=== PATIENT | male | born 1935 | race Caucasian/White ===

== ENCOUNTER 2016-09-26 14:20 | Inpatient (IN) ==
[2016-09-26 15:00] LABS: Basophils % 0.7 % (0.0-0.8); Eosinophils # 0.2 10*3/uL (0.0-0.87); Hematocrit 41.9 VOL% (42.0-52.0); Hemoglobin 14.2 GM/DL (14.0-18.0); Immature Granulocytes % 0.4 %; Immature Granulocytes Absolute 0.02 #; Lymphocytes # 2.1 10*3/uL (1.4-4.0); Lymphocytes % 36.8 % (21.2-54.2); Mean Corpuscular HGB Conc 33.9 GM/DL (32-36); Mean Corpuscular Hemoglobin 31 PG (27-34); Mean Corpuscular Volume 89.9 FL (87-102); Mean Platelet Volume 9.1 FL (9.6-12.0); Monocytes # 0.6 10*3/uL (0.11-0.8); Monocytes % 10.6 % (1.7-12.7); Neutrophils # 2.8 10*3/uL (1.4-7.4); Neutrophils % 48.5 % (38.7-73.9); Platelet Count 273 T/CUMM (130-400); Red Blood Count 4.66 MC/CUMM (3.8-5.5); Red Cell Distribution Width 13.6 % (9.3-17.3); White Blood Count 5.7 T/CUMM (4-12)
[2016-09-26 15:08] LABS: INR 1.1; Partial Thromboplastin Time 28.4 SECS (0-40)
--- NOTE | 2016-09-26 15:24 | Emergency Department Note ---
Armando Price Gwan, am scribing for, and in the presence of, Miguel Peguero MD 15:24 . Marielena Price James D, MD, personally performed the services described in this documentation, ascribed by Javier Roberts in my presence, and it is both accurate and complete 524 . Arrival - Arrival Chief Complaint: Neuro Stated Complaint: neuro ED Nursing Triage Note: pt brought for stroke s/s. pt unable to voice his complaint- very hard of hearing. no obvious defecit noted. 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 no slurred speech or facial droop noted. unknown time of onset. pt's not at bedside. Mode of Arrival: Wheelchair Limitations: No Limitations Source: Patient, Significant other ( ), Old Records Reviewed, RN Notes Reviewed Time Seen by Provider: 09/26/16 14:44 - History of Present Illness HPI Narrative: Patient is a 81 y/o male, with a hx of CVA and Aneurysm, who presents to the ED for further evaluation of possible stroke. Patient stated that pt has new onset of weakness of left side. said that they were present at [facility] for same reasons and that s/p CT head, pt was dx with "mini stroke". confirmed that pt's last known well time was 09/24/2016 at 2000. The morning of 09/25/2016, pt's sxs began. His associated sxs have also been inability to walk. continued to say that pt received right side weakness s/p CVA in 2001. then stated that pt is seen at home by VULNERABILITY ASSESSMENT ANALYST Sarah Sequeira from the [facility] in [place]. She denies that pt has any chest pain or SOB. Onset (ago): day(s) Consistency: constant Severity: moderate Home Medications: Home Medications Medication Instructions Recorded Confirmed Type Amlodipine Besylate 10 mg PO QAM 09/26/16 09/26/16 History Aspirin EC Tab 81 mg PO QAM 09/26/16 09/26/16 History Brimonidine Tartrate [Brimonidine 1 drop BOTH EYES BID 09/26/16 09/26/16 History 0.2% Oph Soln] Carboxymethylcellulos/Glycerin 1 drop BOTH EYES Q1-2H PRN 09/26/16 09/26/16 History [Refresh Optive] Clopidogrel Bisulfate [Clopidogrel] 75 mg PO QAM 09/26/16 09/26/16 History Dorzolamide 2% Oph Soln [Trusopt 1 drop BOTH EYES BID 09/26/16 09/26/16 History 2% Oph Soln] Latanoprost [Latanoprost 0.005 % 1 drop BOTH EYES BEDTIME 09/26/16 09/26/16 History Oph Soln] Lisinopril [Prinivil] 20 mg PO BID 09/26/16 09/26/16 History Metformin HCl 850 mg PO AC BREAKFAST 09/26/16 09/26/16 History [place]-3S/Dha/Epa/Fish Oil 1 each PO QAM 09/26/16 09/26/16 History [Sea-[place] 1,000 mg Softgel] Tamsulosin HCl 0.4 mg PO PC SUPPER 09/26/16 09/26/16 History glyBURIDE [Glyburide] 5 mg PO BID 09/26/16 09/26/16 History Review of System - Review of System 12 point system: reviewed and no additional remarkable complaints except as stated - Review of System Constitutional: Present: as per HPI, weakness (right side) Eyes: Absent: discharge, pain Head/Ears/Nose/Throat: Absent: earache Respiratory: Absent: cough Cardiovascular: Absent: chest pain, palpitations Gastrointestinal: Absent: abdominal pain, nausea, vomiting, diarrhea Genitourinary male: Absent: dysuria Musculoskeletal: Absent: arm pain, back pain, lower back pain, leg pain Skin: Absent: rash, lesions Medical,Surgical,& Family Hx - Medical History Neurology: History of: Cerebrovascular Accident - Social History Smoking Status: Never smoker Frequency of Alcohol Use: None Type of Drug Use: None Exam Physical Examination: GENERAL: This is a white male in no apparent distress. VITAL SIGNS: HEENT: Head is normocephalic and atraumatic. Pupils are equally round and reactive to light. Extraocular movement are intact. Oropharynx is benign with moist mucous membranes. NECK: Neck is soft and supple without tenderness. There are no masses. There is no lymphadenopathy. LUNGS: Lungs are clear to auscultation bilaterally. Chest rises symmetrically. There is no chest wall tenderness. CV: Heart is regular rate and rhythm without murmurs, rubs, or gallops. ABDOMEN: Abdomen is soft, non-tender to palpation. There are no abnormal masses palpated. There is no organomegaly. Bowel sounds are present and active. SKIN: Skin is warm and dry. No rash. EXTREMITIES: Patient has full range of motion without tenderness. There is no pedal edema. NEUROLOGIC: Awake, alert, and oriented x4. Cranial nerves II through XII are grossly intact. Right arm weakness with 1/5 motor function, left arm weakness 3 /5, left lower extremity weakness 3/5 with pronator drift in both left arm and left leg. Right leg weakness, 1/5. Flexion contractures of the right upper extremity are present.. PSYCHIATRIC: Normal affect. Normal mood. Vital Signs: Vital Signs Temperature 97.6 F 09/26/16 14:20 Pulse Rate 101 H 09/26/16 14:20 Respiratory Rate 18 09/26/16 14:20 Blood Pressure 177/84 09/26/16 14:20 O2 Sat by Pulse Oximetry 97 09/26/16 14:20 Course Course Narrative: Patient is not a candidate for TIA due to length of time with onset of symptoms. Results - Labs CBC & BMP: 09/26/16 14:40 09/26/16 14:40 Lab Results: I have reviewed the patients labs Labs: Laboratory Tests 09/26/16 09/26/16 14:40 14:40 WBC 5.7 RBC 4.66 Hgb 14.2 Hct 41.9 L Plt Count 273 MPV 9.1 L INR 1.1 PT Patient/Control Mix 12.0 Circ Anticoag PTT 28.4 Laboratory Tests 09/26/16 14:40 Troponin I < 0.015 - EKG EKG results: interpreted by ERMD - Impressions EKG: Ectopic atrial tachycardia with incomplete right bundle branch block, rate 101, nonspecific ST-T wave changes. - Diagnostic Findings Procedure: Chest x-ray: image reviewed by me (Old median sternotomy, no infiltrates, no pleural effusions.), CT: image reviewed by me (CT head: Cerebral atrophy, old right frontal stroke, left basal ganglia stroke, left occipital stroke.) Disposition Clinical Impression: Diabetes mellitus, Essential hypertension Case discussed with: patient Condition: Stable Time of Disposition: 15:41
--- NOTE | 2016-09-26 15:30 | CT Report ---
Referring physician: Miguel Peguero Exam: CT brain without contrast Date: 09/26/2016 Comparison: None Reason: Hemiparesis Technique: Axial images of the head were obtained without the use of contrast. Total DLP was 970.10 mGy*cm. Findings: The left lateral ventricle is larger in size than the right with no midline displacement. Extensive atrophy and cerebral hypodensities. Evidence of chronic infarcts especially in the left basal ganglia location and the left occipital lobe. Arterial calcifications are noted. No evidence of hemorrhage, mass, or extracerebral collection. No acute findings in the visualized paranasal sinuses, orbits, or temporal bones. The osseous structures appear intact. The mastoid air cells and visualized paranasal sinuses are clear. Impression: Extensive atrophy and microvascular disease which could obscure age indeterminate ischemic infarction. Chronic infarcts are felt to be present especially in the left basal ganglia and occipital lobe. Associated compensatory dilatation of the left lateral ventricle. The CT exam was performed using one or more of the following dose reduction techniques: Automated exposure control and adjustment of the mA and/or kV according to patient size. PROCEDURE INTERPRETED AT [facility] DEPARTMENT OF RADIOLOGY Final Report Signed by: Dr. Laly Dixon
[2016-09-26 15:31] LABS: Alanine Aminotransferase 72 U/L (16-61); Albumin 3.3 G/DL (3.4-5.0); Alkaline Phosphatase 98 U/L (45-117); Aspartate Amino Transferase 122 U/L (0-37); Blood Urea Nitrogen 18 MG/DL (7-18); Calcium 8.7 MG/DL (8.5-10.1); Glucose 265 MG/DL (74-106); Osmolality,Calculated 289.4 MOS/KG (273-304); Potassium 4.5 MMOL/L (3.5-5.1); Sodium 140 MMOL/L (136-145); Total Protein 7.4 G/DL (6.4-8.3); Troponin I Only < 0.015 NG/ML (0.00-0.045)
--- NOTE | 2016-09-26 15:32 | XRay Report ---
Portable chest Date: 09/26/2016 Clinical history: Cardiomegaly Comparison: None Technique: Portable AP sitting chest Findings: The heart is normal in size with prior median sternotomy. Chronic scarring with minimal atelectasis at the lung bases. Unremarkable mediastinum with degenerative changes. Impression: Status post median sternotomy with chronic scarring. Minimal atelectasis at the lung bases. PROCEDURE INTERPRETED AT [facility] DEPARTMENT OF RADIOLOGY Final Report Signed by: Dr. Laly Dixon
--- NOTE | 2016-09-26 17:17 | Hospitalist History & Physical ---
<Ce Lima - Last Filed: 09/26/16 17:07> Assessment and Plan - Time spent with patient Time spent with patient: Greater than 30 minutes (1) History of arterial ischemic stroke Status: Acute Assessment and plan: Mr. Polanco is a pleasant 81-year-old white male with history of CVA, hypertension, diabetes admitted by the hospitalist service with new onset of left-sided weakness. Stroke workup will be initiated. Neurology consult, PT OT and speech consult, start sliding scale insulin, resume home medicines. has seen and examine patient and further recommendations to follow. Current Visit: Yes (2) Left-sided weakness Status: Acute Current Visit: Yes (3) Diabetes mellitus Status: Acute Current Visit: Yes (4) Essential hypertension Status: Acute Current Visit: Yes History of Present Illness Chief complaint: Left-sided weakness History of present illness: Mr. Polanco is a 81 year old male with history of diabetes, hypertension, and previous strokes presenting to the ED with 1 day history of new onset of left- sided weakness. Patient's states he had 2 strokes in 2001 that affected his right side. She states that he normally does everything with his left hand and he is able to transfer on his own from his bed to wheelchair, use the restroom on his own and he has been unable to put weight on the left side without falling. Patient denies headache, blurry vision, dysphasia, chest pain , shortness of breath, abdominal pain, constipation or diarrhea, or lower extremity edema. 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 He received a 1 vessel bypass at that time. Patient's also states he has a plate in his head from a crushing head injury bifrontal and lower. Patient is afebrile and vital signs are stable. Her labs are relatively unremarkable except an elevated blood sugar 265. Chest x-ray is okay. CT the head just shows chronic infarcts especially in the left basal ganglia and occipital lobe. Extensive atrophy and microvascular disease. Patient's case was discussed with Dr. Peguero the ED physician and the admitting hospitalist, it was agreed patient would be admitted for evaluation and treatment. Home Medications Medication Instructions Recorded Confirmed Type Amlodipine Besylate 10 mg PO QAM 09/26/16 09/26/16 History Aspirin EC Tab 81 mg PO QAM 09/26/16 09/26/16 History Brimonidine Tartrate [Brimonidine 1 drop BOTH EYES BID 09/26/16 09/26/16 History 0.2% Oph Soln] Carboxymethylcellulos/Glycerin 1 drop BOTH EYES Q1-2H PRN 09/26/16 09/26/16 History [Refresh Optive] Clopidogrel Bisulfate [Clopidogrel] 75 mg PO QAM 09/26/16 09/26/16 History Dorzolamide 2% Oph Soln [Trusopt 1 drop BOTH EYES BID 09/26/16 09/26/16 History 2% Oph Soln] Latanoprost [Latanoprost 0.005 % 1 drop BOTH EYES BEDTIME 09/26/16 09/26/16 History Oph Soln] Lisinopril [Prinivil] 20 mg PO BID 09/26/16 09/26/16 History Metformin HCl 850 mg PO AC BREAKFAST 09/26/16 09/26/16 History [place]-3S/Dha/Epa/Fish Oil 1 each PO QAM 09/26/16 09/26/16 History [Sea-[place] 1,000 mg Softgel] Tamsulosin HCl 0.4 mg PO PC SUPPER 09/26/16 09/26/16 History glyBURIDE [Glyburide] 5 mg PO BID 09/26/16 09/26/16 History Allergies Allergy/AdvReac Type Severity Reaction Status Date / Time No Known Allergies Allergy Verified 09/26/16 16:17 Medical,Surgical,& Family Hx - Medical History Cardio: History of: Hypertension Neurology: History of: Cerebrovascular Accident Endocrine: History of: Diabetes Mellitus (NIDDM) - Surgical History Cardiac Surgeries: Sugical HX of: Cardiac Surgery (Tumor removed from the heart and one-vessel bypass) Neurologic Surgeries: Surgical HX of: Neurologic Surgery (Plate and is from crushing injury) - Family History Family History: Reports;: Family Heart Disease - Social History Smoking Status: Former smoker Frequency of Alcohol Use: None Type of Drug Use: None Marital Status: Lives With:: Spouse Functional capacity: wheelchair bound Review of systems: A complete 10 system review of systems was obtained and pertinent positives and negatives per HPI Exam - Constitutional Vitals: Period Temp Pulse Resp BP Sys/Chase Pulse Ox Last 24 Hr 99 18 110/71 100 Exam: Constitutional System: No distress. No tremulousness. Head: Normocephalic, atraumatic. Ears, Nose and Throat System: No evidence of Otitis or Mastoiditis. No epistaxis or discharge Eyes System: Pupils equal, round, and reactive. Extraocular muscles intact. Conjunctivae are red Neck: Supple, without adenopathy, No jugular venous distention. No thyromegaly, neck mass, or prior surgery apparent. Respiratory System: Chest clear to auscultation. Cardiovascular System: Heart with regular rate and rhythm. No murmur. GI System: Abdomen soft, nontender. Normo active bowel sounds present. Musculoskeletal System: limbs with no pedal edema. Full distal pulses. Grossly 3/5 strength left arm and leg, contractures on right Neurological System: No discernable sensory deficit. No aphasia Psychiatric System: Conversation is rational Results - Labs CBC & BMP: 09/26/16 14:40 09/26/16 14:40 Lab Results: I have reviewed the past 24 hour labs - Impressions Ectopic atrial tachycardia with incomplete right bundle branch block with nonspecific ST and T-wave abnormality - Diagnostic Findings Procedure: Chest x-ray: report reviewed by me (Status post median sternotomy with chronic scarring and minimal atelectasis), CT: report reviewed by me ( Extensive atrophy and microvascular disease which could obscure age- indeterminate ischemic infarction. Chronic infarcts filter present especially in the left basal ganglia and occipital lobe. Associated compensatory dilation of the left lateral ventricle) Quality Measures - Stroke Symptom Onset Unknown: Yes <Heather Mabry - Last Filed: 09/26/16 17:36> History of Present Illness History of present illness: Mr. Polanco is a 81 year old male with multiple risk factors for CVA presents with a left sided weakness.CT head showed no acute changes. Plan Monitor bed Cardiac enzymes MR head' carotids uss b/l, echo, lipids, TSH, AIC levels SSC, PT/OT consult ASA, Plavix Neuro consult. UA Exam - Constitutional Vitals: Period Temp Pulse Resp BP Sys/Chase Pulse Ox Last 24 Hr 97.3 F 97-99 18-18 110-144/71-71 99-100 Results - Labs CBC & BMP: 09/26/16 14:40 05/18/17 14:40
[2016-09-26] MEDS ORDERED: DEXTROSE 50% 25 GM/50 ML VIAL IV PRN (17:56)
[2016-09-26] MEDS ORDERED: LABETALOL 20 MG/4 ML SYRINGE IV PRN (17:56)
[2016-09-26] MEDS ORDERED: GLUCAGON 1 MG VIAL IM PRN (17:56)
[2016-09-26] MEDS ORDERED: CARBOXYMETHYLCELLULOSE 1% OPH SOLN BOTH EYES PRN (17:56)
[2016-09-26] MEDS: INSULIN REGULAR 100 UNIT/ML SUBCUT SCH (18:29)
[2016-09-26] MEDS: ENOXAPARIN 40 MG/0.4 ML SYRINGE SUBCUT SCH (18:29)
[2016-09-26] MEDS: TAMSULOSIN 0.4 MG CAPSULE PO SCH (18:29)
[2016-09-26 18:53] LABS: Troponin I Only < 0.015 NG/ML (0.00-0.045)
[2016-09-26 20:49] LABS: Apearance,Urine Slightly Hazy (Clear); Bilirubin,Urine Negative (Negative); Blood, Urine Negative (Negative); Calcium Oxalate Crystals,Urine Occasional /HPF (Few); Glucose,Urine (UA) >=500 mg/dL (Negative); Hyaline Casts,Urine 4 /LPF (0-3); Ketones,Urine Negative (Negative); Mucus,Urine Occasional /LPF (Occasional); Nitrite,Urine Negative (Negative); Protein,Urine Negative; RBC,Urine 1 /HPF (0-4); Squamous Epithelial Cell,Urine Occasional /HPF (0-10); Urine Color Yellow (Yellow); Urine Specific Gravity 1.012 (1.001-1.035); Urine Urobilinogen < 2.0 EU/DL (0.2-1.0); WBC,Urine 2 /HPF (0-6)
--- NOTE | 2016-09-26 21:33 | Ultrasound Report ---
US carotid duplex BI Indication: Left side weakness. Comparison: None. Technique: Using transcutaneous probe, routine carotid arterial duplex ultrasound performed. Ultrasound images were captured and stored. Estimation of stenosis will be made using indirect NASCET criteria. Ultrasound images were captured and stored. Findings: Grayscale and color Doppler findings: Echogenic plaque is noted within the right carotid artery bulb and proximal cervical segment ICA. Additional echogenic plaque is present within the left carotid artery bulb extending into the left ECA origin and into the cervical segment ICA. Peak systolic velocities are as follows (centimeters per second): Right CCA: 52. Right proximal ICA: 53. Right distal ICA: 42. Right ICA/CCA ratio: 1.0. Left CCA: 56. Left proximal ICA: 39. Left distal ICA: 68. Left ICA/CCA ratio: 1.2. External carotid arteries: External carotid arteries are bilaterally patent. Vertebral arteries: Vertebral arteries bilaterally demonstrate antegrade flow. Impression: 1.No hemodynamically significant stenosis is estimated to involve either carotid arterial system. 09/26/2016 9:29 PM PROCEDURE INTERPRETED AT [facility] DEPARTMENT OF RADIOLOGY Final Report Signed by: Dr. Mateo Iraheta
[2016-09-26] MEDS: LATANOPROST 0.005% OPH SOLN 2.5 ML BOTTLE BOTH EYES SCH (21:46)
[2016-09-26] MEDS: BRIMONIDINE 0.2% OPH SOLN 5 ML BOTTLE BOTH EYES SCH (21:46)
[2016-09-26] MEDS: DORZOLAMIDE 2% OPH SOLN 10 ML BOTTLE BOTH EYES SCH (21:46)
[2016-09-26 22:56] LABS: Barbiturates Screen,Urine Negative (Negative); Benzodiazepines Screen,Urine Negative (Negative); Cannabinoid Screen,Urine Negative (Negative); Opiate Screen,Urine Negative (Negative); Phencyclidine Screen,Urine Negative (Negative)
[2016-09-27] MEDS: INSULIN REGULAR 100 UNIT/ML SUBCUT SCH ×4 (00:24→18:17)
[2016-09-27 07:41] LABS: Basophils # 0.1 10*3/uL (0.0-0.2); Eosinophils # 0.3 10*3/uL (0.0-0.87); Hematocrit 40.4 VOL% (42.0-52.0); Hemoglobin 13.8 GM/DL (14.0-18.0); Immature Granulocytes % 0.2 %; Immature Granulocytes Absolute 0.01 #; Lymphocytes # 2.1 10*3/uL (1.4-4.0); Lymphocytes % 35.9 % (21.2-54.2); Mean Corpuscular HGB Conc 34.2 GM/DL (32-36); Mean Corpuscular Hemoglobin 31 PG (27-34); Mean Corpuscular Volume 90.2 FL (87-102); Monocytes # 0.7 10*3/uL (0.11-0.8); Monocytes % 11.6 % (1.7-12.7); Neutrophils # 2.7 10*3/uL (1.4-7.4); Neutrophils % 46.3 % (38.7-73.9); Platelet Count 285 T/CUMM (130-400); Red Blood Count 4.48 MC/CUMM (3.8-5.5); Red Cell Distribution Width 13.4 % (9.3-17.3); White Blood Count 5.8 T/CUMM (4-12)
--- NOTE | 2016-09-27 07:56 | EKG Report ---
Stationary ECG Study [facility] ER Test Date: 09/26/2016 2:24:15 PM Pat Name: FRITZ RAMSEY Department: Room: 541 Gender: M Leadership Program Internship: : 1935 Requested by: Miguel Gray Order Number: [id number] Reading MD: SOO GUZMAN Intervals [place] Rate: 101 P: 259 OR: 192 QRS: 63 QRSD: 113 T: 22 QT: 392 QTc: 450 Interpretive Statements ATRIAL FLUTTER INCOMPLETE RIGHT BUNDLE BRANCH BLOCK Electronically Signed On 09-27-16 17:15:00 CDT by SOO GUZMAN [email or web address]
[2016-09-27 08:06] LABS: Albumin 3.1 G/DL (3.4-5.0); Bilirubin,Total 0.7 MG/DL (0.2-1.0); Calcium 8.2 MG/DL (8.5-10.1); Osmolality,Calculated 289.7 MOS/KG (273-304); Potassium 3.9 MMOL/L (3.5-5.1); Risk Ratio 4.63; Total Protein 6.7 G/DL (6.4-8.3)
[2016-09-27] MEDS: CLOPIDOGREL 75 MG TABLET PO SCH (08:40)
[2016-09-27] MEDS: OMEGA 3 ACID ETHYL ESTERS 1 GM CAPSULE PO SCH (08:40)
[2016-09-27] MEDS: ASPIRIN EC 81 MG TABLET PO SCH (08:40)
[2016-09-27] MEDS: DORZOLAMIDE 2% OPH SOLN 10 ML BOTTLE BOTH EYES SCH ×2 (08:42→20:26)
[2016-09-27] MEDS: BRIMONIDINE 0.2% OPH SOLN 5 ML BOTTLE BOTH EYES SCH ×2 (08:42→20:26)
--- NOTE | 2016-09-27 10:24 | XRay Report ---
Exam: XR orbits for mri Date: 09/27/2016 9:29 AM Comparison: None Indication: MRI clearance Technique:[3 view orbits Findings: Surgical metallic wire in the floor of the] left orbit. Impression: Surgical metallic wire in the floor the left orbit. PROCEDURE INTERPRETED AT [facility] DEPARTMENT OF RADIOLOGY Final Report Signed by: Dr. Laly Dixon
--- NOTE | 2016-09-27 14:18 | Magnetic Resonance Report ---
History: Left-sided weakness Date: 09/27/2016 Study: MRI brain without IV contrast Comparison exam: CT head 09/26/2016 The brain was imaged in 3 planes on the 1.5 Radha magnet without IV contrast, to include diffusion, T2, FLAIR, gradient-echo, and T1-weighted sequences. The ventricles are midline in position without evidence of hydrocephalus. There is moderate diffuse cerebral atrophy. There is no Chiari I malformation. There is no gross pituitary mass. There is a small focus of subacute ischemia, slightly hyperintense on DWI and isointense on ADC, involving right parietal cortex and subcortical white matter near the convexity, measuring up to 10 x 3 mm. There is no additional area of potential recent ischemia. There is no mass effect or parenchymal hemorrhage. There is a large amount of patchy increased FLAIR and T2 signal in the periventricular white matter and deep white matter without mass effect compatible with changes of small vessel disease. Chronic left occipital and bilateral frontal infarcts are noted bilaterally. Areas of chronic lacunar infarction are noted in the lenticular nuclei and left best radiata. There is no mass effect. There is no extra-axial hematoma. There is normal flow void in the superior sagittal sinus. There is no obvious cerebellopontine angle mass. There is no gross flow abnormality in the [place] area. There is evidence of remote cataract surgery bilaterally. Impression: There is evidence of a small area of subacute ischemia in a right parietal/right MCA distribution region. No acute ischemia or parenchymal hemorrhage. Chronic ischemic changes PROCEDURE INTERPRETED AT [facility] DEPARTMENT OF RADIOLOGY Final Report Signed by: Dr. Yarelis Deshpande
--- NOTE | 2016-09-27 15:00 | Hospitalist Progress Note ---
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 Reportedly has been able to eat a liquid diet here so we will just advance diet as tolerated at this time. Keep an eye on ability of swallow. Usually she can swallow liquids should be able to swallow solids. There is any suggestion of problems speech therapy will see him. Current Visit: Yes (2) History of arterial ischemic stroke Status: Acute Assessment and plan: This is noted on the MRI today to Current Visit: Yes Hospitalist: Subjective Interval history: She has been seen interviewed and examined chart has been reviewed. Rounds were made with the charge nurse. The hospital with a history of old strokes and history of brain injury in the past after an industrial equipment fell on his head. He has a history of scalp repair. Comes in with what looks like acute CVA syndrome. Spikes over the parietal Chema surgeries patient was able to have an MRI done today that shows possibility of a right medial cerebral artery distribution ischemia. Patient will be going through physical therapy and occupational therapy here. He is able to talk to me. He has been here for some time and is on clear liquids and be able to swallow clear liquids. Our office was making a decision to give him a meal he has not had any speech therapy evaluation but he has been able to swallow these liquids. Therefore put him on a heart healthy diet now solid meals Exam - Constitutional Vitals: Period Temp Pulse Resp BP Sys/Chase Pulse Ox Last 24 Hr 96.8 F-98.7 F 95-99 18-20 110-153/67-84 94-100 General appearance: normal weight - Head Head exam: Present: other (Prior head injuries but no acute injuries.) - Eye Eye exam: Present: EOMI Pupils: Present: DENISE - ENT ENT exam: Present: other (Right facial withdrawal, mild) - Neck Neck exam: Present: normal inspection - Respiratory Respiratory exam: Present: clear to auscultation bilaterally - Cardiovascular Cardiovascular exam: Present: other (Regular with occasional ectopy. Unfortunately this patient was supposed to be on the monitor is noted to monitor here. I will instruct the floor to put a monitor on the gentleman.) - GI/Abdominal GI/Abdominal exam: Present: normal bowel sounds, soft - Extremities Exam Extremities exam: Present: other (Old contracture of the right upper extremity especially on the right side. There is him some weakness on the left with a mild right facial droop) - Neurological Exam Neurological exam: Present: alert, oriented X3, other (Mild right facial drop) - Psychiatric Psychiatric exam: Present: normal affect, normal mood - Skin Skin exam: Present: normal color, warm, dry Results - Labs CBC & BMP: 09/27/16 07:14 09/27/16 07:14 Lab Results: I have reviewed the past 24 hour labs Quality Measures - Stroke Symptom Onset Unknown: Yes
--- NOTE | 2016-09-27 16:53 | ECHO Report ---
Jordy Polanco Exam Date: 09/27/2016 14:24 Referring Physician: Technologist: Gena Mobley RDCS Age: 81 Ht (in): 63 Wt (lb): 155 Gender: M Exam Location: [facility] Echo Indications: Essential (primary) hypertension, Left sided weakness, Diabetes, CVA BP: 126 / 67 HR: 95 Rhythm: Atrial fibrillation Technical Quality: Technically difficult study IMPRESSIONS Technically difficult study. EF 50-55 %. The right ventricle is normal in size and function. The right atrium is mildly enlarged. The left atrium is mildly enlarged. The left atrium is mildly enlarged. Mildly thickened mitral valve. Trace mitral valve regurgitation. Aortic valve sclerosis. Trace aortic valve regurgitation. Mild tricuspid valve regurgitation. PAP40 mmHG. Pulmonic valve not well visualized. Normal pericardium without effusion. Normal ascending aorta dimension. No LV or LA clot seen in this limited study. MEASUREMENTS (Male / Female) Normal Values 2D ECHO LV Diastolic Diameter PLAX 3.1 cm 4.2 - 5.9 / 3.9 - 5.3 cm LV Systolic Diameter PLAX 1.8 cm LV Fractional Shortening PLAX 40.8 % IVS Diastolic Thickness 0.9 cm 0.6 - 1.0 / 0.6 - 0.9 cm LVPW Diastolic Thickness 0.9 cm 0.6 - 1.0 / 0.6 - 0.9 cm RV Internal Dim ED PLAX 3.3 cm Aortic Root Diameter 2.4 cm LA Systolic Diameter LX 3.0 cm 3.0 - 4.0 / 2.7 - 3.8 cm DOPPLER TR Peak Velocity 247.0 cm/s TR Peak Gradient 24.4 mmHg FINDINGS Left Ventricle EF 50-55 %. Right Ventricle The right ventricle is normal in size and function. Right Atrium The right atrium is mildly enlarged. Left Atrium The left atrium is mildly enlarged. Mitral Valve Mildly thickened mitral valve. Trace mitral valve regurgitation. Aortic Valve Aortic valve sclerosis. Trace aortic valve regurgitation. Tricuspid Valve Morphologically normal tricuspid valve. Mild tricuspid valve regurgitation. PAP40 mmHG. Pulmonic Valve Pulmonic valve not well visualized. Pericardium Normal pericardium without effusion. Aorta Normal ascending aorta dimension. Jason Sheikh (Electronically Signed) Final Date: 27 Sep 2016 16:51
[2016-09-27] MEDS: TAMSULOSIN 0.4 MG CAPSULE PO SCH (17:54)
[2016-09-27] MEDS: ENOXAPARIN 40 MG/0.4 ML SYRINGE SUBCUT SCH (17:54)
[2016-09-27] MEDS: LATANOPROST 0.005% OPH SOLN 2.5 ML BOTTLE BOTH EYES SCH (20:28)
[2016-09-28] MEDS: INSULIN REGULAR 100 UNIT/ML SUBCUT SCH ×4 (01:08→18:08)
[2016-09-28] MEDS: DORZOLAMIDE 2% OPH SOLN 10 ML BOTTLE BOTH EYES SCH ×2 (08:21→21:06)
[2016-09-28] MEDS: CLOPIDOGREL 75 MG TABLET PO SCH (08:21)
[2016-09-28] MEDS: BRIMONIDINE 0.2% OPH SOLN 5 ML BOTTLE BOTH EYES SCH ×2 (08:21→21:06)
[2016-09-28] MEDS: OMEGA 3 ACID ETHYL ESTERS 1 GM CAPSULE PO SCH (08:21)
[2016-09-28] MEDS: ASPIRIN EC 81 MG TABLET PO SCH (08:21)
--- NOTE | 2016-09-28 16:22 | Hospitalist Progress Note ---
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 Reportedly has been able to eat a liquid diet here so we will just advance diet as tolerated at this time. Keep an eye on ability of swallow. Usually she can swallow liquids should be able to swallow solids. There is any suggestion of problems speech therapy will see him. Current Visit: Yes (2) History of arterial ischemic stroke Status: Acute Assessment and plan: This is noted on the MRI today to Current Visit: Yes Hospitalist: Subjective Interval history: Patient seen interviewed and examined and chart has been reviewed. Patient admitted to the hospital with acute stroke syndrome found to have an acute ischemic infarct involving the right middle cerebral artery. His therapy and neurology evaluation has been consulted on. Unfortunately we are on diversion for neurology until Friday; patient is doing better able to talk to me. Exam - Constitutional Vitals: Period Temp Pulse Resp BP Sys/Chase Pulse Ox Last 24 Hr 97.0 F-99.5 F 92-100 16-18 119-158/66-81 94-98 General appearance: normal weight - Eye Eye exam: Present: EOMI Pupils: Present: DENISE - ENT ENT exam: Present: normal exam - Neck Neck exam: Present: other (Supple neck no JVD no bruit) - Respiratory Respiratory exam: Present: clear to auscultation bilaterally - Cardiovascular Cardiovascular exam: Present: regular rate and rhythm, other (Patient denied) - GI/Abdominal GI/Abdominal exam: Present: normal bowel sounds, soft - Extremities Exam Extremities exam: Present: full ROM - Neurological Exam Neurological exam: Present: alert, oriented X3, CN II-XII intact - Psychiatric Psychiatric exam: Present: normal affect, normal mood - Skin Skin exam: Present: normal color, warm, dry Results - Labs CBC & BMP: 09/27/16 07:14 09/27/16 07:14 Lab Results: I have reviewed the past 24 hour labs Quality Measures - Stroke Symptom Onset Unknown: Yes
[2016-09-28] MEDS: TAMSULOSIN 0.4 MG CAPSULE PO SCH (18:06)
[2016-09-28] MEDS: ENOXAPARIN 40 MG/0.4 ML SYRINGE SUBCUT SCH (18:06)
[2016-09-28] MEDS: LATANOPROST 0.005% OPH SOLN 2.5 ML BOTTLE BOTH EYES SCH (21:07)
[2016-09-29] MEDS: INSULIN REGULAR 100 UNIT/ML SUBCUT SCH ×4 (01:13→18:28)
[2016-09-29] MEDS: DORZOLAMIDE 2% OPH SOLN 10 ML BOTTLE BOTH EYES SCH ×2 (08:29→21:20)
[2016-09-29] MEDS: BRIMONIDINE 0.2% OPH SOLN 5 ML BOTTLE BOTH EYES SCH ×2 (08:29→21:20)
[2016-09-29] MEDS: ASPIRIN EC 81 MG TABLET PO SCH (08:30)
[2016-09-29] MEDS: OMEGA 3 ACID ETHYL ESTERS 1 GM CAPSULE PO SCH (08:30)
[2016-09-29] MEDS: CLOPIDOGREL 75 MG TABLET PO SCH (08:30)
--- NOTE | 2016-09-29 13:16 | Hospitalist Progress Note ---
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 Try to get him into swing bed for more rehab early this coming week; will consult case management for this Current Visit: Yes (2) History of arterial ischemic stroke Status: Acute Assessment and plan: This is noted on the MRI today too. The new neuro deficit on the left side seemed to be recovering. He will need more physical therapy as mentioned above. Current Visit: Yes Hospitalist: Subjective Interval history: Patient has been seen interviewed and examined chart has been reviewed. Continues to recover well the activities with the left upper extremity and left lower extremity. Will need some sort more physical therapy set acute services. Therefore consult case management to start looking into transferring him to a swing bed. Exam - Constitutional Vitals: Period Temp Pulse Resp BP Sys/Chase Pulse Ox Last 24 Hr 97.3 F-98.4 F 87-97 18-20 127-152/65-82 92-99 General appearance: normal weight - Head Head exam: Present: normocephalic - Eye Eye exam: Present: EOMI Pupils: Present: DENISE - ENT ENT exam: Present: normal exam - Neck Neck exam: Present: normal inspection - Respiratory Respiratory exam: Present: clear to auscultation bilaterally - Cardiovascular Cardiovascular exam: Present: regular rate and rhythm - GI/Abdominal GI/Abdominal exam: Present: normal bowel sounds, soft - Extremities Exam Extremities exam: Present: other (Weakness on the left side is relatively new patient has contracture on the right lower except for extremity and very weak right lower extremity. He has history of previous strokes. This time came in with a stroke involving the right middle cerebral artery) - Neurological Exam Neurological exam: Present: alert, oriented X3, CN II-XII intact, other (Rather hard of hearing) - Psychiatric Psychiatric exam: Present: normal affect, normal mood - Skin Skin exam: Present: normal color, warm, dry Results - Labs CBC & BMP: 09/27/16 07:14 09/27/16 07:14 Lab Results: I have reviewed the past 24 hour labs Quality Measures - Stroke Symptom Onset Unknown: Yes
[2016-09-29] MEDS: ENOXAPARIN 40 MG/0.4 ML SYRINGE SUBCUT SCH (18:28)
[2016-09-29] MEDS: TAMSULOSIN 0.4 MG CAPSULE PO SCH (18:28)
[2016-09-29] MEDS: LATANOPROST 0.005% OPH SOLN 2.5 ML BOTTLE BOTH EYES SCH (21:20)
[2016-09-30] MEDS: INSULIN REGULAR 100 UNIT/ML SUBCUT SCH ×3 (01:30→13:24)
[2016-09-30] MEDS: ASPIRIN EC 81 MG TABLET PO SCH (09:57)
[2016-09-30] MEDS: CLOPIDOGREL 75 MG TABLET PO SCH (09:57)
[2016-09-30] MEDS: BRIMONIDINE 0.2% OPH SOLN 5 ML BOTTLE BOTH EYES SCH (09:58)
[2016-09-30] MEDS: OMEGA 3 ACID ETHYL ESTERS 1 GM CAPSULE PO SCH (09:58)
[2016-09-30] MEDS: DORZOLAMIDE 2% OPH SOLN 10 ML BOTTLE BOTH EYES SCH (09:58)
--- NOTE | 2016-09-30 10:13 | Quality Management ---
The patient's LDL is 122. Please order the appropriate medication or provide a contraindication PRIOR to discharge. To complete this task, you will need to order the medication OR provide a contraindication utilizing the Order Management screen. Noted; patient is on atorvastatin 20 mg at bedtime DO NOT ORDER OR PROVIDE CONTRAINDICATIONS WITHIN THIS QUERY. THIS IS A MEANINGFUL USE REQUIREMENT! Thank you, Ce Dimas RN Clinical Digital Specialist W [phone] [facility] CENTERIsaac
--- NOTE | 2016-09-30 10:23 | Discharge Summary ---
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 Status: Acute (2) History of arterial ischemic stroke Status: Acute Discharge Plan - Discharge Data Disposition: Disch/Xfer-Ip Rehab Fac Condition at Discharge: Stable Discharge Diet: diabetic diet, heart healthy Activity: resume usual activities as tolerated Hygiene: other (Patient will need to help with activities of daily living) Weight Bearing at Discharge: weight bear as tolerated Driving: other (No driving) Contact your physician if you experience:: fever over 101, Difficulty voiding, Nausea/Vomiting, Shortness of breath, pain uncontrolled by pain medications - Discharge Medications Continue Tamsulosin HCl 0.4 mg PO PC SUPPER Lisinopril [Prinivil] 20 mg PO BID Clopidogrel Bisulfate [Clopidogrel] 75 mg PO QAM Amlodipine Besylate 10 mg PO QAM [place]-3S/Dha/Epa/Fish Oil [Sea-[place] 1,000 mg Softgel] 1 each PO QAM glyBURIDE [Glyburide] 5 mg PO BID Latanoprost [Latanoprost 0.005 % Oph Soln] 1 drop BOTH EYES BEDTIME Brimonidine Tartrate [Brimonidine 0.2% Oph Soln] 1 drop BOTH EYES BID Carboxymethylcellulos/Glycerin [Refresh Optive] 1 drop BOTH EYES Q1-2H PRN PRN Reason: Dry Eyes Polyethylene Glycol Powder [Miralax] 17 gm PO DAILY PRN PRN Reason: Constipation Multivitamin with Minerals [Multivitamins with Minerals] 1 each PO DAILY Dorzolamide 2% Oph Soln [Trusopt 2% Oph Soln] 1 drop BOTH EYES BID Metformin HCl 850 mg PO AC BREAKFAST Aspirin EC Tab 81 mg PO QAM - Follow Up or Referral - Forms/Instructions Exam - Constitutional Vitals: Period Temp Pulse Resp BP Sys/Chase Pulse Ox Last 24 Hr 97.4 F-97.7 F 82-98 17-20 107-145/49-76 92-97 General appearance: normal weight - Head Head exam: Present: normocephalic - Eye Eye exam: Present: EOMI Pupils: Present: DENISE - ENT ENT exam: Present: normal exam - Neck Neck exam: Present: normal inspection - Respiratory Respiratory exam: Present: clear to auscultation bilaterally - Cardiovascular Cardiovascular exam: Present: regular rate and rhythm - GI/Abdominal GI/Abdominal exam: Present: normal bowel sounds, soft - Extremities Exam Extremities exam: Present: other (Contracture left upper extremity from previous stroke patient did come in with a significant weakness of the left side associated with a new right middle cerebral artery stroke. There is some recovery movement on the left side. Patient will get more physical therapy) - Neurological Exam Neurological exam: Present: alert, oriented X3, CN II-XII intact, other (Very hard of hearing) - Psychiatric Psychiatric exam: Present: normal affect, normal mood - Skin Skin exam: Present: normal color, warm, dry Discharge Results Labs on day of discharge: Labs from last 24 hours 09/30/16 09/29/16 09/29/16 05:49 23:56 18:16 POC Glucose 101 96 216 H 09/29/16 11:37 POC Glucose 100 DS: Provider Date of admission: 09/26/16 16:00 Primary care physician: . No PCP Attending physician on admission: JADE Rod Consults: 09/26/16 17:56 Consult to Occupational Therapy [CONS] Routine Reason for Occupational Therapy: Weakness Consult to Physical Therapy [CONS] Routine Reason for Physical Therapy: Weakness Consult to Physician [CONS] Routine Comment: LEFT SIDED WEAKNESS Consulting Provider: Alec Cai When should Consulting Provider be notified: In am Consult to Specialist Group: Neurology When should Consulting Provider be notified: In am Date Notified: 09/27/16 Time Notified: 09:36 Consult Notification Comment: CALLED HIS OFFICE JAY SAID HE'S ON BYPASS 09/27/16 14:44 Consult to Speech Therapy [CONS] Routine Reason for Speech Therapy: Other Consult Comment: new onset left sided weakness with hx of cva causing right sided weakness 09/27/16 15:06 Consult to Occupational Therapy [CONS] Routine Reason for Occupational Therapy: Evaluate and Treat Consult to Physical Therapy [CONS] Routine Reason for Physical Therapy: Evaluate and Treat 09/29/16 10:20 Consult to Case Mgmt/Social Srvs [CONS] Routine Reason for Case Mgmt/Social Srvs: Rehab Consult Comment: New CVA with left sided weakness Discharging clinician: Mello Gary MD <Nate Johnson - Last Filed: 09/30/16 12:05> Hospital Course - Hospital Course Hospital Course: Mr. Polanco is a 81 year old male with history of diabetes, hypertension, and previous strokes presenting to the ED on 09/26 with a 1 day history of new onset of left-sided weakness. Patient's states he had 2 strokes in 2001 that affected his right side. Prior to arrival to admission, pt's states that he normally did everything with his left hand and was able to transfer on his own from his bed to wheelchair, use the restroom on his own and that he had been unable to put weight on the left side without falling. In ED, Chest x-ray is okay. CT the head just shows chronic infarcts especially in the left basal ganglia and occipital lobe. Extensive atrophy and microvascular disease. Pt. was admitted for evaluation and treatment. MRI was performed and showed a subacute ischemia to R parietal and R MCA region. Neuro was consulted, and PT/ OT ordered. Pt.'s condition has improved and pt is able to move extremities. Pt. is also tolerating solid food. Today the patient will be transferred to a swing bed facility for rehab.
[2016-09-30 12:11] VITALS: BP 123/74
--- NOTE | 2016-09-30 15:22 | Neurology Consult Note ---
History of Present Illness History of present illness: Mr. Polanco is a 81 year old right-handed white gentleman with history of diabetes, hypertension, and previous strokes with residual right-sided weakness presenting to the ED with 1 day history of new onset of left-sided weakness. Patient's states he had 2 strokes in 2001 that affected his right side. She states that he normally does everything with his left hand and he is able to transfer on his own from his bed to wheelchair, use the restroom on his own and he has been unable to put weight on the left side without falling. Patient denies headache, blurry vision, dysphasia, chest pain, shortness of breath, abdominal pain, constipation or diarrhea, or lower extremity edema. 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 MRI of the brain revealed tiny subacute right parietal lobe deep subcortical infarct. Home Medications Medication Instructions Recorded Confirmed Type Amlodipine Besylate 10 mg PO QAM 09/26/16 09/26/16 History Aspirin EC Tab 81 mg PO QAM 09/26/16 09/26/16 History Brimonidine Tartrate [Brimonidine 1 drop BOTH EYES BID 09/26/16 09/26/16 History 0.2% Oph Soln] Carboxymethylcellulos/Glycerin 1 drop BOTH EYES Q1-2H PRN 09/26/16 09/26/16 History [Refresh Optive] Clopidogrel Bisulfate [Clopidogrel] 75 mg PO QAM 09/26/16 09/26/16 History Dorzolamide 2% Oph Soln [Trusopt 1 drop BOTH EYES BID 09/26/16 09/26/16 History 2% Oph Soln] Latanoprost [Latanoprost 0.005 % 1 drop BOTH EYES BEDTIME 09/26/16 09/26/16 History Oph Soln] Lisinopril [Prinivil] 20 mg PO BID 09/26/16 09/26/16 History Metformin HCl 850 mg PO AC BREAKFAST 09/26/16 09/26/16 History [place]-3S/Dha/Epa/Fish Oil 1 each PO QAM 09/26/16 09/26/16 History [Sea-[place] 1,000 mg Softgel] Tamsulosin HCl 0.4 mg PO PC SUPPER 09/26/16 09/26/16 History glyBURIDE [Glyburide] 5 mg PO BID 09/26/16 09/26/16 History Multivitamin with Minerals 1 each PO DAILY 09/27/16 09/27/16 History [Multivitamins with Minerals] Polyethylene Glycol Powder 17 gm PO DAILY PRN 09/27/16 09/27/16 History [Miralax] Allergies Allergy/AdvReac Type Severity Reaction Status Date / Time No Known Allergies Allergy Verified 09/26/16 16:17 12 point system: reviewed and no additional remarkable complaints except as stated Medical,Surgical,& Family Hx - Medical History Cardio: History of: Hypertension Neurology: History of: Cerebrovascular Accident HEENT: History of: Glaucoma Endocrine: History of: Diabetes Mellitus (IDDM), Diabetes Mellitus (NIDDM) Musculoskeletal: History of: Amputation (right great toe amp), Musculoskeletal Problems - Surgical History Cardiac Surgeries: Sugical HX of: Cardiac Surgery (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 NECK: Neck is supple. There is no JVD. No carotid bruits present. No thyroid masses. CVS: First and second heart sounds are normal. There is no S3 present. Regular rate and rhythm. RESPIRATORY: Lungs are clear to auscultation without any rales or rhonchi. ABDOMEN: Soft and non-tender. Bowel sounds are present. There is no hepatosplenomegaly. EXT: There is no palpable edema. Peripheral pulses are present. Skin: No rashes Central Nervous system: General: Alert, awake Speech: Fluent Comprehension: Intact and normal Facial expressions: Normal Cranial Nerves: CN1/Olfactory: Normal CN II/ Optic: Normal, Visual [place] unreliable CN III, and : DENISE & EOMI CN V: Normal & intact CN VII: face is symmetric CNVIII: Very hard of hearing CN XI/X/XI/XII: Intact and Normal Motor: Bulk and Tone is normal. Strength in the right 3-4/5 with a spasticity Strength in the left 3-4/5 Sensory: Grossly intact for all the modalities of PP, LT and temp sense Reflexes: 1+ and symmetrical Cerebellar function: Slow finger to nose and heel to arellano testing. Toes: Equivocal Gait: Cannot be tested at this Results - Labs CBC & BMP: 09/27/16 07:14 09/27/16 07:14 Assessment and Plan (1) Acute CVA (cerebrovascular accident) Status: Acute Assessment and plan: Continue aspirin a day Stop Plavix Eliquis 5 mg twice daily Okay to go to [facility] swing bed Follow-up in 6 weeks Current Visit: Yes Specialty Discharge - Follow Up or Referrals Follow up with: Alec Cai MD [Physician] - 1 Month
[2016-09-30] MEDS ORDERED: APIXABAN 5 MG TABLET PO SCH (21:00)
== END 2016-09-30 15:15 | DRG 65 ==
LOC: EDBD → EDUNIT# → N.ED 14:20 → SUATTDRO 16:00 → N.EDINP 16:00 → N.5E 17:10
PROVIDERS: ADMIT Physician Assistant; ATTEND Internal Medicine Infectious Disease